=== PATIENT | female | born 1965 | race African-American/Black ===

== ENCOUNTER 2023-07-07 17:06 | Inpatient (IN) | payer OTHER ==
[2023-07-07 17:38] VITALS: BMI 20.3
[2023-07-07 17:54] LABS: VENOUS BASE EXCESS 0.4 mmol/L (-2-2); VENOUS O2 SATURATION 92.1 % (70-80); VENOUS PCO2 31.7 mmHg (38-52); VENOUS PH 7.496 (7.310-7.410)
[2023-07-07] MEDS ORDERED: ACETAMINOPHEN INJECTION 100 ML IVPB ONE (17:57)
[2023-07-07] MEDS ORDERED: PIPERACILLIN/TAZOB 4.5 GM 4.5 GM/100 ML BAG IVPB ONE (17:57)
[2023-07-07 18:02] LABS: HEMATOCRIT 13.3 % (32.4-45.2); MCH 30.8 pg (25.7-33.7); MEAN CELL VOLUME 102.6 fl (80-96); MEAN PLT VOLUME 11.1 fl (7.5-11.1); RBC 1.29 M/mm3 (3.60-5.2); RDW 16.8 % (11.6-15.6); WHITE BLOOD COUNT 24.8 K/mm3 (4.0-10.0)
[2023-07-07] MEDS: ACETAMINOPHEN 1000 MG/100 ML BAG IVPB ONE (18:02)
[2023-07-07] MEDS: SODIUM CHLORIDE 0.9% 500 ML INFUS.BAG IV ONE (18:02)
[2023-07-07 18:04] LABS: INR 1.75 (0.83-1.09); PROTHROMBIN TIME (PATIENT) 20.2 SEC (9.7-13.0)
[2023-07-07 18:06] LABS: ACTIVATED PTT 30.3 SECONDS (25.2-36.5)
[2023-07-07 18:11] LABS: PLATELET COUNT 36 10^3/uL (134-434)
[2023-07-07] MEDS: PIPERACILLIN/TAZOB 4.5 GM 4.5 GM in DEXTROSE 5%-WATER 100 ML IVPB ONE (18:23)
[2023-07-07] MEDS ORDERED: VANCOMYCIN 1 GRAM (PRE-DOCKED) 1,000 MG/250 ML BAG IVPB ONE ×2 (18:36→23:03)
[2023-07-07 19:10] LABS: CHLORIDE 102 mmol/L (98-107); POTASSIUM 3.4 mmol/L (3.5-5.1); SODIUM 135 mmol/L (136-145)
[2023-07-07 19:12] LABS: ALBUMIN 2.2 g/dl (3.4-5.0); ANION GAP 11 mmol/L (4-13); BLOOD UREA NITROGEN 42.2 mg/dL (7-18); CALCIUM 7.7 mg/dL (8.5-10.1); CO2 23 mmol/L (21-32); GLUCOSE,RANDOM 129 mg/dL (74-106)
[2023-07-07 19:15] LABS: SGOT/AST 124 U/L (15-37); SGPT/ALT 73 U/L (13-61)
[2023-07-07 19:16] LABS: CREATININE 1.5 mg/dL (0.55-1.3)
[2023-07-07 19:17] LABS: BILIRUBIN,TOTAL 0.9 mg/dL (0.2-1)
[2023-07-07 19:18] LABS: ALK PHOS 75 U/L (45-117)
[2023-07-07 22:06] LABS: EPI CELLS 5 /uL (0-25.1); HYALINE CASTS 2 /uL (0-3.1); URINE APPEARANCE CLOUDY; URINE BACTERIA 6 /uL (0-1359); URINE BILIRUBIN NEGATIVE (NEGATIVE); URINE COLOR YELLOW; URINE GLUCOSE (UA) NEGATIVE (NEGATIVE); URINE KETONE NEGATIVE (NEGATIVE); URINE LEUK ESTERASE NEGATIVE (NEGATIVE); URINE NITRITE NEGATIVE (NEGATIVE); URINE PROTEIN TRACE (NEGATIVE); URINE RBC 44 /uL (0-23.9); URINE UROBILINOGEN 0.2 mg/dL (0.2-1.0); URINE WBC 8 /uL (0-25.8)
[2023-07-07 22:11] LABS: PHENCYCLIDINE,URINE NEGATIVE (NEGATIVE)
[2023-07-07 22:12] LABS: COCAINE, UR NEGATIVE (NEGATIVE); METHADONE, UR NEGATIVE (NEGATIVE); OPIATES, URI NEGATIVE (NEGATIVE); URINE AMPHETAMINES NEGATIVE (NEGATIVE); URINE BARBITURATES NEGATIVE (NEGATIVE); URINE BENZODIAZEPINES NEGATIVE (NEGATIVE)
[2023-07-07 22:31] LABS: CORRECTED WBC 10.97 K/mm3
[2023-07-07] MEDS: VANCOMYCIN 1,000 MG in DEXTROSE 5%-WATER - 250 ML IVPB ONE (22:59)
[2023-07-07 23:57] LABS: HEMATOCRIT 19.9 % (32.4-45.2); MCH 30.5 pg (25.7-33.7); MCHC 32.6 g/dl (32.0-36.0); MEAN CELL VOLUME 93.6 fl (80-96); RBC 2.13 M/mm3 (3.60-5.2); RDW 17.4 % (11.6-15.6); RETICULOCYTES 5.21 % (0.5-1.5); WHITE BLOOD COUNT 18.8 K/mm3 (4.0-10.0)
[2023-07-08] MEDS: SODIUM CHLORIDE 1,000 ML IV SCH (06:05)
[2023-07-08 09:43] LABS: HEMATOCRIT 23.6 % (32.4-45.2); HEMOGLOBIN 7.8 GM/dL (10.7-15.3); MCH 30.4 pg (25.7-33.7); MCHC 33.2 g/dl (32.0-36.0); MEAN CELL VOLUME 91.5 fl (80-96); MEAN PLT VOLUME 9.4 fl (7.5-11.1); RBC 2.58 M/mm3 (3.60-5.2); WHITE BLOOD COUNT 19.9 K/mm3 (4.0-10.0)
[2023-07-08 09:54] LABS: POTASSIUM 3.6 mmol/L (3.5-5.1)
[2023-07-08 10:01] LABS: ALBUMIN 1.8 g/dl (3.4-5.0); BLOOD UREA NITROGEN 21.8 mg/dL (7-18); CALCIUM 7.1 mg/dL (8.5-10.1); CREATININE 0.6 mg/dL (0.55-1.3); MAGNESIUM 2.4 mg/dL (1.8-2.4)
[2023-07-08 10:02] LABS: TOT PROT 5.4 g/dl (6.4-8.2)
[2023-07-08 10:03] LABS: PHOSPHOROUS 2.2 mg/dL (2.5-4.9)
[2023-07-08 10:10] LABS: ANISOCYTOSIS 0; CORRECTED WBC 7.29 K/mm3; MACROCYTOSIS 0
[2023-07-08 10:14] LABS: MEAN PLT VOLUME 10.7 fl (7.5-11.1)
[2023-07-08 10:25] LABS: ANISOCYTOSIS 0; CORRECTED WBC 6.84 K/mm3; MACROCYTOSIS 0
[2023-07-08 10:27] LABS: HEMOGLOBIN 6.5 GM/dL (10.7-15.3); PLATELET COUNT 29 10^3/uL (134-434)
[2023-07-08 10:28] LABS: PLATELET COUNT 24 10^3/uL (134-434)
[2023-07-08] MEDS ORDERED: MIDAZOLAM HCL 2 MG/2 ML SINGLE DOSE VIAL ONE (11:00)
[2023-07-08] MEDS ORDERED: FENTANYL CITRATE/PF 50 MCG/ML VIAL ONE (11:00)
[2023-07-08] MEDS: ACETAMINOPHEN 1000 MG/100 ML BAG IVPB PRN (11:08)
[2023-07-08] MEDS ORDERED: ACETAMINOPHEN INJECTION 100 ML IVPB ONE (11:09)
[2023-07-08 11:34] VITALS: RESP 18
[2023-07-08 13:18] LABS: URIC ACID 4.2 mg/dL (2.6-7.2)
[2023-07-08] MEDS: PIPERACILLIN/TAZOB 4.5 GM 4.5 GM in DEXTROSE 5%-WATER 100 ML IVPB SCH (13:51)
[2023-07-08 14:59] VITALS: BP 103/59; TEMP 98.3
[2023-07-08 16:22] VITALS: PULSE 75
[2023-07-08] MEDS: VANCOMYCIN/WATER FOR INJ (PEG) 750 MG/150 ML BAG IVPB SCH (16:52)
== END 2023-07-08 17:22 | disposition short-term general hospital (02) | DRG 690 ==
LOC: JER 17:06 → JERBED 22:26 → J4S 07-08 12:45
PROVIDERS: ADMIT Internal Medicine; ATTEND Internal Medicine
PROC: 30233N1 Transfusion of Nonautologous Red Blood Cells into Peripheral Vein, Percutaneous Approach (ICD-10-PCS; principal; 2023-07-07)
DX: C92.00 Acute myeloblastic leukemia, not having achieved remission (principal); N17.9 Acute kidney failure, unspecified; I95.9 Hypotension, unspecified; F20.9 Schizophrenia, unspecified; R29.818 Other symptoms and signs involving the nervous system; R47.81 Slurred speech; R63.0 Anorexia; Z68.20 Body mass index [BMI] 20.0-20.9, adult
CPT/HCPCS: 0241U-QW; 36415; 36430; 70450-TC; 70551-TC; 71045-TC-FY; 71250-TC; 74176-TC; 80053; 80061; 80307; 81003; 82272; 82550; 82553; 82803; 82962; 83605; 83615; 83735; 84100; 84443; 84484; 84550; 85025; 85045; 85379; 85384; 85610; 85730; 86900; 87040; 87086; 88300-TC; 93005; 93010; 99285-25; J0131; P9058